=== PATIENT | male | born 1975 ===

== ENCOUNTER 2017-06-19 22:13 | Emergency (ER) | payer OTHER ==
[2017-06-19 22:38] VITALS: BP 104/65; PULSE 65; RESP 16; TEMP 97.9; O2SAT 96
--- NOTE | 2017-06-19 22:48 | ED PDOC ---
HPI: General Adult Time Seen by Provider: 06/19/17 22:46 Chief Complaint (Nursing): Flu-like Symptoms Chief Complaint (Provider): BODYACHES History Per: Patient (41 Y/O MALE WITH 1 WEEK OF LOW GRADE FEVER/BODYACHES [employer] WITH NECK PAIN/MILD COUGH/MILD SORE THROAT. NOTES THAT HIS STEPCHILD WAS RECENTLY ILL. NO VOMITING. NOTES DIARRHEA AT TIMES. NOTES NASAL CONGESTION THAT TROUBLES HIM AT NIGHT.) Past Medical History Reviewed: Historical Data, Nursing Documentation, Vital Signs Vital Signs: Last Vital Signs Temp 97.9 F 06/19/17 22:35 Pulse 65 06/19/17 22:35 Resp 16 06/19/17 22:35 BP 104/65 06/19/17 22:35 Pulse Ox 96 06/19/17 22:35 - Family History Family History: States: No Known Family Hx - Home Medications Home Medications: Ambulatory Orders Medication Instructions Recorded Acetaminophen [Acetaminophen Extra 2 tab PO Q6 PRN #24 tablet 06/19/17 Strength] Pseudoephedrine [Sudafed Tab] 60 mg PO Q6 PRN #24 tab 06/19/17 Ranitidine HCl [Zantac 75] 75 mg PO BID #10 tablet 06/19/17 - Allergies Allergies/Adverse Reactions: Allergies Allergy/AdvReac Type Severity Reaction Status Date / Time No Known Allergies Allergy Verified 06/19/17 22:38 Review of Systems ROS Statement: Except As Marked, All Systems Reviewed And Found Negative Constitutional: Positive for: Fever ENT: Positive for: Nose Congestion Respiratory: Positive for: Cough Physical Exam - Reviewed Nursing Documentation Reviewed: Yes Vital Signs Reviewed: Yes - Physical Exam Appears: Positive for: Well, Non-toxic, No Acute Distress Head Exam: Positive for: ATRAUMATIC, NORMAL INSPECTION, NORMOCEPHALIC Skin: Positive for: Normal Color, Warm, DRY Eye Exam: Positive for: EOMI, Normal appearance, PERRL ENT: Positive for: Normal ENT Inspection, Nasal Congestion Neck: Positive for: Normal, Painless ROM Cardiovascular/Chest: Positive for: Regular Rate, Rhythm Respiratory: Positive for: CNT, Normal Breath Sounds Gastrointestinal/Abdominal: Positive for: Normal Exam, Bowel Sounds, Soft Back: Positive for: Normal Inspection Extremity: Positive for: Normal ROM Neurologic/Psych: Positive for: Alert, Oriented - ECG O2 Sat by Pulse Oximetry: 96 Disposition - Clinical Impression Clinical Impression: Influenza-like symptoms - Disposition Disposition: Routine/Home Disposition Time: 22:48 Condition: FAIR Prescriptions: Acetaminophen [Acetaminophen Extra Strength] 2 tab PO Q6 PRN #24 tablet PRN Reason: Pain, Moderate (4-7) Pseudoephedrine [Sudafed Tab] 60 mg PO Q6 PRN #24 tab PRN Reason: Nasal Congestion Ranitidine HCl [Zantac 75] 75 mg PO BID #10 tablet Instructions: Viral Syndrome (ED) Forms: [facility] (Danish), [facility] ED School/Work Excuse
== END 2017-06-19 23:24 | disposition home or self-care (01) ==
LOC: H.ER 22:13
DX: B34.9 Viral infection, unspecified (principal); R09.89 Other specified symptoms and signs involving the circulatory and respiratory systems